=== PATIENT | female | born 1950 | race African-American/Black ===

== ENCOUNTER → 2018-10-21 | Outpatient (CLI) | payer BC, OTHER ==
--- NOTE | 2018-10-21 15:09 | EXE ---
[facility] [address] [place] [address] STRESS ECHOCARDIOGRAM Name: PRIYA HELMS Room #: REG CL Mignon#: [id number] Admission: 10/21/18 Attend Phys: Jese Sultana, Discharge: Date of : 52 Date of Service: 10/21/18 1509 Report #: [id number] THIS REPORT FOR: //name// APPROVED REPORT Study performed: 10/21/2018 09:46:04 Exam: Stress Echocardiogram Indication: Chest pain Patient Location: Out-Patient Stress Nurse: Christine Gilliam RN Room #: Echo lab 2 Status: routine Ht: 5 ft 1 in HR: 55 bpm BP: 152/84 mmHg Rhythm: Bradycardia Medical History Medical History: HTN, Hyperlipidemia Allergies: No known drug allergies Cardiac Risk Factors: HTN, Hyperlipidemia, FHX of CAD Exercise History: Sedentary Procedure The patient underwent an Exercise Stress Test using the Thomas Protocol. Blood pressure, heart rate, and EKG were monitored. An Echocardiogram was performed by surfacing technician in four stages in quad fashion. At peak stress, four selected images were obtained and placed side by side with resting images for comparison. Stress Test Details Stress Test: Exercise stress testing was performed using a Thomas protocol. HR Resting HR: 55 bpm Max Heart Rate (APMHR): 153 bpm Max HR Achieved: 160 bpm Target HR (85% APMHR): 130 bpm % of APMHR: 104 Recovery HR: 94 bpm HR response to stress: Normal HR response to stress BP Resting BP: 152/84 mmHg Max BP: 190/66 mmHg Recovery BP: 130/68 mmHg [facility] [address] [place] [address] STRESS ECHOCARDIOGRAM Name: PRIYA HELMS [id number] Admission: 10/21/18 Attend Phys: Jese Sultana, Discharge: Date of : 52 Date of Service: 10/21/18 1509 Report #: [id number] BP response to stress: Normal blood pressure response to stress. ECG Resting ECG: Sinus Rhythm Stress ECG: Sinus Rhythm ST Change: Upsloping ST depression Maximum ST Deviation: 1 mm Recovery ECG: Sinus Rhythm Recovery ST Change: Upsloping ST depression Recovery ST Deviation: 0.5 mm Clinical Reason for Termination: Maximal effort Stress Symptoms: Leg Fatigue Exercise duration: 10 min 10 sec Highest Stage Achieved: Stage 4: 4.2 mph at 16% grade. Exercise capacity: 10.7 METs Overall Exercise Capacity for Age: Good Stress ECG Conclusion positive ecg Pre-Stress Echo The resting Echocardiogram showed normal left ventricular contractility with an estimated Ejection Fraction of about >55%. Post-Stress Echo The stress Echocardiogram showed normal left ventricular contractility with an estimated Ejection Fraction of about 65-70%. Clinical Normal augmentation of myocardial wall segments using a 17 segment model. LV chamber size decreases, LV ejection fraction increases, no new wall motion abnormalities are seen. Conclusion Clinical Response: Non-ischemic Exercise Capacity: Average Stress ECG Response: Ischemic Stress Echo Images: Non-ischemic Negative stress echo for ischemia or infarct. The ecg findings are likely false positive. No prior study available for comparison. Other Information [facility] [address] [place] [address] STRESS ECHOCARDIOGRAM Name: PRIYA HELMS [facility] Room #: REG CL [facility]#: [id number] Admission: 10/21/18 Attend Phys: Jese Sultana, Discharge: Date of : 52 Date of Service: 10/21/18 1509 Report #: [id number] Study Quality: Adequate <Conclusion> Negative stress echo for ischemia or infarct. The ecg findings are likely false positive. <ELECTRONICALLY SIGNED> By: Jese Sultana MD, FACC 10/21/18 1509 1509 1509 Jese Sultana MD, FACC /INF
== END ==
LOC: CV 09:27
DX: E78.00 Pure hypercholesterolemia, unspecified (principal); R07.9 Chest pain, unspecified; M25.519 Pain in unspecified shoulder; I10 Essential (primary) hypertension; E78.5 Hyperlipidemia, unspecified